=== PATIENT | female | born 1950 | race Caucasian/White ===

== ENCOUNTER → 2016-10-23 | Outpatient (CLI) | payer MEDICARE ==
[~2016-10-23] MED LIST: BUPIVACAINE/PF 0.5% ONE
== END | disposition home or self-care (01) ==
LOC: RAD 15:43
PROVIDERS: ATTEND Internal Medicine Hematology & Oncology
DX: Z51.11 Encounter for antineoplastic chemotherapy (principal); Z45.2 Encounter for adjustment and management of vascular access device; C50.919 Malignant neoplasm of unspecified site of unspecified female breast
CPT/HCPCS: 36569; 76937; 77001; C1751; J3490

== ENCOUNTER → 2016-11-04 | Outpatient (CLI) | payer MEDICARE ==
[2016-11-04 14:21] LABS: ASPARTATE AMINO TRANSFERASE 24 U/L (15-37); BLOOD UREA NITROGEN 13 mg/dL (7-18)
== END | disposition home or self-care (01) ==
LOC: LAB 13:41
PROVIDERS: ATTEND Internal Medicine Hematology & Oncology
DX: Z51.11 Encounter for antineoplastic chemotherapy (principal); C50.919 Malignant neoplasm of unspecified site of unspecified female breast
CPT/HCPCS: 36415; 80053; 85025

== ENCOUNTER → 2018-01-07 | Outpatient (CLI) | payer MEDICARE ==
[~2018-01-07] MED LIST changes: -BUPIVACAINE/PF 0.5% ONE; +LIDOCAINE-MPF 1%, 2ML ONE
== END | disposition home or self-care (01) ==
LOC: RAD 10:05
PROVIDERS: ATTEND Internal Medicine Hematology & Oncology
DX: Z45.2 Encounter for adjustment and management of vascular access device (principal); C50.919 Malignant neoplasm of unspecified site of unspecified female breast
CPT/HCPCS: 36569; 76937; 77001; C1751; J3490